=== PATIENT | female | born 1960 | race Caucasian/White ===

== ENCOUNTER 2017-11-11 15:02 | Observation (INO) | payer BC ==
[~2017-11-11] VITALS: Ht 165.1 cm; Wt 60.0 kg
[2017-11-11 15:04] VITALS: BP 152/86; PULSE 68; RESP 16; TEMP 98.2; O2SAT 98
--- NOTE | 2017-11-11 15:36 | RADRPT ---
EXAM DATE/TIME: 11/11/2017 15:26 [place] COMPARISON: No previous studies available for comparison. INDICATIONS : Chest pain radiating to the left side and shortness of breath for one week. MEDICAL HISTORY : No pertinent medical history. SURGICAL HISTORY : No pertinent surgical history. ENCOUNTER: Initial ACUITY: 1 week PAIN SCORE: 6/10 LOCATION: Left chest FINDINGS: PA and lateral views of the chest demonstrate the lungs to be symmetrically aerated without evidence of mass, infiltrate or effusion. No evidence of pneumothorax. The cardiomediastinal contours are un remarkable. Osseous structures are intact. CONCLUSION: No acute cardiopulmonary disease. Evelio Spann MD on November 11, 2017 at 15:34 Board Certified Radiologist. This report was verified electronically.
[2017-11-11 16:03] LABS: AUTOMATED NEUTROPHIL # 4.9 TH/MM3 (1.8-7.7); BASOPHIL # 0.1 TH/MM3 (0-0.2); BASOPHIL % 0.8 % (0.0-2.0); EOSINOPHIL # 0.2 TH/MM3 (0-0.4); EOSINOPHIL % 3.1 % (0.0-4.0); HEMATOCRIT 40.8 % (35.0-46.0); LYMPH % 26.3 % (9.0-44.0); MEAN CORPUSCULAR HEMOGLOBIN 30.6 PG (27.0-34.0); MEAN CORPUSCULAR HGB CONC 34.4 % (32.0-36.0); MEAN PLATELET VOLUME 7.4 FL (7.0-11.0); MONO % 6.8 % (0.0-8.0); MONOCYTE # 0.5 TH/MM3 (0-0.9); PLATELET COUNT 342 TH/MM3 (150-450); RED BLOOD COUNT 4.58 MIL/MM3 (4.00-5.30); RED CELL DISTRIBUTION WIDTH 13.5 % (11.6-17.2); WHITE BLOOD COUNT 7.7 TH/MM3 (4.0-11.0)
[2017-11-11 16:06] VITALS: O2SAT 100
--- NOTE | 2017-11-11 16:19 | PD ---
HPI Chief Complaint: Chest Pain Time Seen by Provider: 16:11 Travel History International Travel<30 days: No Contact w/Intl Traveler<30days: No Traveled to known affect area: No History of Present Illness HPI 57 year old female with no significant past medical history presents for evaluation of chest pain and dyspnea. She reports that she traveled down here from [place] 5 days ago. She has been having this discomfort since then. She describes it as a heaviness in the center of her chest with occasional palpitations. The heaviness radiates into the left arm. Nothing makes the pain better or worse. She took 650 mg of aspirin this morning. Denies any nausea, vomiting, cough, congestion, leg swelling, abdominal pain, fevers or chills. Denies any personal history of coronary artery disease. Denies any history of tobacco use, hypertension, hyperlipidemia, diabetes. Denies any history of PE or DVT. She has no other complaints at this time. [facility] Social History Alcohol Use: No Tobacco Use: No Allergies-Medications (Allergen,Severity, Reaction): Coded Allergies: latex (Verified Allergy, Unknown, 11/11/17) Review of Systems Except as stated in HPI: all other systems reviewed are Neg Physical Exam Narrative GENERAL: Well-developed well-nourished female in no acute distress resting comfortably in hospital bed. SKIN: Warm and dry. HEAD: Atraumatic. Normocephalic. EYES: Pupils equal and round. No scleral icterus. No injection or drainage. ENT: No nasal bleeding or discharge. Mucous membranes pink and moist. NECK: Trachea midline. No JVD. CARDIOVASCULAR: Regular rate and rhythm. No murmur appreciated. RESPIRATORY: No accessory muscle use. Clear to auscultation. Breath sounds equal bilaterally. GASTROINTESTINAL: Abdomen soft, non-tender, nondistended. Hepatic and splenic margins not palpable. MUSCULOSKELETAL: No obvious deformities. No clubbing. No cyanosis. No edema. NEUROLOGICAL: Awake and alert. No obvious cranial nerve deficits. Motor grossly within normal limits. Normal speech. PSYCHIATRIC: Appropriate mood and affect; insight and judgment normal. Data Data Last Documented VS Vital Signs Date Time Temp Pulse Resp B/P (MAP) Pulse Ox O2 Delivery O2 Flow Rate FiO2 11/11/17 16:06 100 Room Air 11/11/17 15:04 98.2 68 16 Orders Orders Electrocardiogram (11/11/17 15:14) Complete Blood Count With Diff (11/11/17 15:14) Basic Metabolic Panel (Bmp) (11/11/17 15:14) Ckmb (Isoenzyme) Profile (11/11/17 15:14) Troponin I (11/11/17 15:14) Iv Access Insert/Monitor (11/11/17 15:14) Ecg Monitoring (11/11/17 15:14) Oxygen Administration (11/11/17 15:14) Oximetry (11/11/17 15:14) Chest, Pa & Lat (11/11/17 15:14) Act Partial Throm Time (Ptt) (11/11/17 15:25) Prothrombin Time / Inr (Pt) (11/11/17 15:25) Nitroglycerin Sl (Nitrostat Sl) (11/11/17 16:30) D-Dimer (11/11/17 16:16) Admit Order (Ed Use Only) (11/11/17 17:11) Activity Bed Rest With Brp (11/11/17 17:11) Vital Signs (Adult) Q4H (11/11/17 17:11) Cardiac Rhythm .As Directed (11/11/17 17:11) Notify Dr: Other .PRN (11/11/17 17:11) Notify Dr. Parameters (11/11/17 17:11) Resp Oxygen Nasal Cannula (11/11/17 ) Ckmb (Isoenzyme) Profile (11/11/17 18:40) Ckmb (Isoenzyme) Profile (11/11/17 21:40) Troponin I (11/11/17 18:40) Troponin I (11/11/17 21:40) Electrocardiogram (11/11/17 18:40) Electrocardiogram (11/11/17 21:40) ^ Obtain (11/11/17 17:11) Sodium Chloride 0.9% Flush (Ns Flush) (11/11/17 17:15) Sodium Chloride 0.9% Flush (Ns Flush) (11/11/17 21:00) Diet Regular Basic (11/11/17 Dinner) Npo After Midnight W/ Po Meds (11/11/17 Dinner) Labs Laboratory Tests Test 11/11/17 15:40 White Blood Count 7.7 TH/MM3 Red Blood Count 4.58 MIL/MM3 Hemoglobin 14.0 GM/DL Hematocrit 40.8 % Mean Corpuscular Volume 89.0 FL Mean Corpuscular Hemoglobin 30.6 PG Mean Corpuscular Hemoglobin Concent 34.4 % Red Cell Distribution Width 13.5 % Platelet Count 342 TH/MM3 Mean Platelet Volume 7.4 FL Neutrophils (%) (Auto) 63.0 % Lymphocytes (%) (Auto) 26.3 % Monocytes (%) (Auto) 6.8 % Eosinophils (%) (Auto) 3.1 % Basophils (%) (Auto) 0.8 % Neutrophils # (Auto) 4.9 TH/MM3 Lymphocytes # (Auto) 2.0 TH/MM3 Monocytes # (Auto) 0.5 TH/MM3 Eosinophils # (Auto) 0.2 TH/MM3 Basophils # (Auto) 0.1 TH/MM3 CBC Comment DIFF FINAL Differential Comment Prothrombin Time 10.2 SEC Prothromb Time International Ratio 1.0 RATIO Activated Partial Thromboplast Time 26.5 SEC D-Dimer Quantitative (PE/DVT) 0.19 MG/L FEU Blood Urea Nitrogen 12 MG/DL Creatinine 0.70 MG/DL Random Glucose 76 MG/DL Calcium Level 9.2 MG/DL Sodium Level 140 MEQ/L Potassium Level 4.3 MEQ/L Chloride Level 105 MEQ/L Carbon Dioxide Level 31.9 MEQ/L Anion Gap 3 MEQ/L Estimat Glomerular Filtration Rate 87 ML/MIN Total Creatine Kinase 62 U/L Troponin I LESS THAN 0.02 NG/ML MDM Medical Decision Making Medical Screen Exam Complete: Yes Emergency Medical Condition: Yes Medical Record Reviewed: Yes Differential Diagnosis Angina, acute coronary syndrome, pulmonary embolism, arrhythmia, pericarditis, myocarditis, pneumothorax Narrative Course The patient was placed on ECG monitor and pulse oximetry. Twelve-lead EKG was obtained revealing sinus rhythm with occasional premature complexes. Lab work and chest x-ray have been ordered. One sublingual nitroglycerin has been ordered. The patient's initial lab work and imaging studies are reassuring. At this point in time the plan and agreed to admit the patient into the chest pain center for serial cardiac enzymes and rule out purposes. She is agreeable. Diagnosis Primary Impression: Chest pain Admitting Information Admitting Physician Requests: Observation Omid Roe Nov 11, 2017 16:19
[2017-11-11 16:25] LABS: BICARBONATE 31.9 MEQ/L (21.0-32.0); BLOOD UREA NITROGEN 12 MG/DL (7-18); CALCIUM 9.2 MG/DL (8.5-10.1); CHLORIDE 105 MEQ/L (98-107); GLOMERULAR FILTRATION RATE 87 ML/MIN (>89); GLUCOSE,RANDOM 76 MG/DL (74-106); SODIUM (NA) 140 MEQ/L (136-145)
[2017-11-11 16:28] LABS: PROTHROMBIN TIME - PATIENT 10.2 SEC (9.8-11.6)
[2017-11-11 16:29] LABS: TROPONIN I LESS THAN 0.02 NG/ML (0.02-0.05)
[2017-11-11] MEDS ORDERED: NITROGLYCERIN 0.4 MG SL 25 TABS/BTL SL ONE (16:30)
[2017-11-11] MEDS ORDERED: SODIUM CHLORIDE 0.9% FLUSH 10 ML FLUSH IV FLUSH PRN (17:15)
[2017-11-11 19:01] LABS: TROPONIN I LESS THAN 0.02 NG/ML (0.02-0.05)
[2017-11-11] MEDS: SODIUM CHLORIDE 0.9% FLUSH 10 ML FLUSH IV FLUSH SCH (21:00)
[2017-11-11 21:03] VITALS: BP 116/74; PULSE 74; RESP 18; TEMP 98; O2SAT 97
[2017-11-11 23:36] LABS: TROPONIN I LESS THAN 0.02 NG/ML (0.02-0.05)
[2017-11-12] VITALS: BP 154/84; PULSE 85; RESP 18; TEMP 98.4; O2SAT 94
[2017-11-12 03:52] VITALS: BP 113/95; PULSE 83; RESP 18; TEMP 98; O2SAT 96
[2017-11-12] MEDS: SODIUM CHLORIDE 0.9% FLUSH 10 ML FLUSH IV FLUSH SCH (06:23)
[2017-11-12] MEDS ORDERED: ACETAMINOPHEN 500 MG CPLT PO PRN ×2 (07:00→07:45)
[2017-11-12] MEDS ORDERED: ONDANSETRON HCL 4 MG/2 ML VIAL IV PUSH PRN (07:45)
[2017-11-12] MEDS ORDERED: NITROGLYCERIN 0.4 MG SL 25 TABS/BTL SL PRN (07:45)
[2017-11-12 08:00] VITALS: PULSE 64
[2017-11-12 08:36] VITALS: BP 128/70; PULSE 70; RESP 20; TEMP 98.2; O2SAT 96
[2017-11-12] MEDS ORDERED: ASPIRIN 325 MG TAB PO SCH (09:00)
--- NOTE | 2017-11-12 09:31 | HHI.HP ---
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 About 10 days ago she began to notice some discomfort in her chest these episodes are in the upper mid chest lasts for seconds can be an 8 out of 10 in severity and are variously described as heavy sharp aching. At times it seems to radiate to the right arm she also has noted some shortness of breath associated. There are no precipitating or relieving factors. Currently she has a severe headache but this began after her nitroglycerin. She has an entirely negative past medical history with no no prior history of heart disease hypertension hyperlipidemia diabetes etc. Review of Systems Cardiovascular: COMPLAINS OF: See HPI Past Family Social History Allergies: Coded Allergies: latex (Verified Allergy, Unknown, 11/11/17) Past Medical History Entirely negative Past Surgical History Had her tubes tied but no other surgical history Reported Medications No medications Active Ordered Medications Current Medications Medications (Trade) Dose Ordered Sig/Mani Route Start Time Stop Time Status Last Admin (NS Flush) 2 ml UNSCH PRN IV FLUSH 11/11/17 17:15 (NS Flush) 2 ml BID IV FLUSH 11/11/17 21:00 11/12/17 06:23 (Tylenol) 500 mg Q6H PRN PO 11/12/17 07:00 11/12/17 06:23 (Tylenol) 500 mg Q4H PRN PO 11/12/17 07:45 (Zofran Inj) 4 mg Q6H PRN IV PUSH 11/12/17 07:45 (Nitrostat Sl) 0.4 mg Q5M PRN SL 11/12/17 07:45 (Aspirin) 325 mg DAILY PO 11/12/17 09:00 11/12/17 08:19 Family History Mother age 52 of breast cancer Father age 73 after a CVA No siblings Social History No alcohol tobacco or illicit substances Works for chiropractor Physical Exam Vital Signs Vital Signs Date Time Temp Pulse Resp B/P (MAP) Pulse Ox O2 Delivery O2 Flow Rate FiO2 11/12/17 08:36 98.2 70 20 128/70 (89) 96 11/12/17 03:52 98.0 83 18 113/95 (101) 96 11/12/17 00:00 98.4 85 18 154/84 (107) 94 11/11/17 21:03 97 11/11/17 21:03 98.0 74 18 116/74 (88) 97 11/11/17 16:06 100 Room Air 11/11/17 16:05 100 Room Air 11/11/17 15:04 98.2 68 16 152/86 (108) 98 Physical Exam GENERAL: Well-nourished well-developed lady complaining of headache SKIN: Warm and dry. HEAD: Atraumatic. Normocephalic. EYES: Pupils equal and round. No scleral icterus. No injection or drainage. ENT: No nasal bleeding or discharge. Mucous membranes pink and moist. NECK: Trachea midline. No JVD. CARDIOVASCULAR: Regular rate and rhythm. RESPIRATORY: No accessory muscle use. Clear to auscultation. Breath sounds equal bilaterally. GASTROINTESTINAL: Abdomen soft, non-tender, nondistended. Hepatic and splenic margins not palpable. Bellybutton ornament MUSCULOSKELETAL: Extremities without clubbing, cyanosis, or edema. No obvious deformities. NEUROLOGICAL: Awake and alert. No obvious cranial nerve deficits. Motor grossly within normal limits. Five out of 5 muscle strength in the arms and legs. Normal speech. PSYCHIATRIC: Appropriate mood and affect; insight and judgment normal. Laboratory Laboratory Tests Test 11/11/17 15:40 11/11/17 18:30 11/11/17 22:40 White Blood Count 7.7 Red Blood Count 4.58 Hemoglobin 14.0 Hematocrit 40.8 Mean Corpuscular Volume 89.0 Mean Corpuscular Hemoglobin 30.6 Mean Corpuscular Hemoglobin Concent 34.4 Red Cell Distribution Width 13.5 Platelet Count 342 Mean Platelet Volume 7.4 Neutrophils (%) (Auto) 63.0 Lymphocytes (%) (Auto) 26.3 Monocytes (%) (Auto) 6.8 Eosinophils (%) (Auto) 3.1 Basophils (%) (Auto) 0.8 Neutrophils # (Auto) 4.9 Lymphocytes # (Auto) 2.0 Monocytes # (Auto) 0.5 Eosinophils # (Auto) 0.2 Basophils # (Auto) 0.1 CBC Comment DIFF FINAL Differential Comment Prothrombin Time 10.2 Prothromb Time International Ratio 1.0 Activated Partial Thromboplast Time 26.5 D-Dimer Quantitative (PE/DVT) 0.19 Blood Urea Nitrogen 12 Creatinine 0.70 Random Glucose 76 Calcium Level 9.2 Sodium Level 140 Potassium Level 4.3 Chloride Level 105 Carbon Dioxide Level 31.9 Anion Gap 3 Estimat Glomerular Filtration Rate 87 Total Creatine Kinase 62 50 48 Troponin I LESS THAN 0.02 LESS THAN 0.02 LESS THAN 0.02 Result Diagram: 11/11/17 1540 11/11/17 1540 Imaging Negative chest x-ray Course Patient has ruled out by chest pain center protocol for ACS. She continues to complain of chest pain and a severe headache. She will be given a single dose of 2 mg IV morphine and his headache improves we will obtain an exercise stress test Caprini VTE Risk Assessment Caprini VTE Risk Assessment: No/Low Risk (score <= 1) Caprini Risk Assessment Model Point Value = 1 Point Value = 2 Point Value = 3 Point Value = 5 Age 41-60 Minor surgery BMI > 25 kg/m2 Swollen legs Varicose veins or History of unexplained or recurrent spontaneous Oral contraceptives or hormone replacement Sepsis (< 1 month) Serious lung disease, including pneumonia (< 1 month) Abnormal pulmonary function Acute myocardial infarction Congestive heart failure (< 1 month) History of inflammatory bowel disease Medical patient at bed rest Age 61-74 Arthroscopic surgery Major open surgery (> 45 min) Laparoscopic surgery (> 45 min) Malignancy Confined to bed (> 72 hours) Immobilizing plaster cast Central venous access Age >= 75 History of VTE Family history of VTE Factor V Leiden Prothrombin [id number] Lupus anticoagulant Anticardiolipin antibodies Elevated serum homocysteine Heparin-induced thrombocytopenia Other congenital or acquired thrombophilia Stroke (< 1 month) Elective arthroplasty Hip, pelvis, or leg fracture Acute spinal cord injury (< 1 month) Prophylaxis Regimen Total Risk Factor Score Risk Level Prophylaxis Regimen 0-1 Low Early ambulation 2 Moderate Order ONE of the following: *Sequential Compression Device (SCD) *Heparin 5000 units SQ BID 3-4 Higher Order ONE of the following medications: *Heparin 5000 units SQ TID *Enoxaparin/Lovenox 40 mg SQ daily (WT < 150 kg, CrCl > 30 mL/min) *Enoxaparin/Lovenox 30 mg SQ daily (WT < 150 kg, CrCl > 10-29 mL/min) *Enoxaparin/Lovenox 30 mg SQ BID (WT < 150 kg, CrCl > 30 mL/min) AND/OR *Sequential Compression Device (SCD) 5 or more Highest Order ONE of the following medications: *Heparin 5000 units SQ TID (Preferred with Epidurals) *Enoxaparin/Lovenox 40 mg SQ daily (WT < 150 kg, CrCl > 30 mL/min) *Enoxaparin/Lovenox 30 mg SQ daily (WT < 150 kg, CrCl > 10-29 mL/min) *Enoxaparin/Lovenox 30 mg SQ BID (WT < 150 kg, CrCl > 30 mL/min) AND *Sequential Compression Device (SCD) Assessment and Plan Problem List: (1) Chest pain ICD Codes: R07.9 - Chest pain, unspecified Status: Acute Plan: Has ruled out for ACS and will obtain an exercise stress test. If negative will discharge for outpatient follow-up when she returns to [place] Code Status Full code Discussed Condition With Discussed with nurse practitioner and with the patient Garrison Gordon MD Nov 12, 2017 09:31
[2017-11-12] MEDS ORDERED: MORPHINE SULFATE 2 MG/ML INJ IV PUSH ONE (10:00)
--- NOTE | 2017-11-12 10:10 | HHI.DCPOC ---
Discharge Care Plan Diagnosis: (1) Atypical chest pain Goals to Promote Your Health * To prevent worsening of your condition and complications * To maintain your health at the optimal level Directions to Meet Your Goals Take your medications as prescribed Follow your dietary instruction Follow activity as directed Keep your appointments as scheduled Take your immunizations and boosters as scheduled If your symptoms worsen call your PCP, if no PCP go to Urgent Care Center or Emergency Room Smoking is Dangerous to Your Health. Avoid second hand smoke Call the 24-hour hour crisis hotline for domestic abuse at Raina Cuellar Nov 12, 2017 10:10
[2017-11-12] MEDS ORDERED: IBUPROFEN 600 MG TAB PO ONE (10:30)
--- NOTE | 2017-11-12 17:45 | EKG ---
Date Performed: 11/11/2017 Time Performed: 22:35:49 PTAGE: 57 years EKG: Sinus rhythm MINIMAL ST DEPRESSION BORDERLINE ECG NO SIG CHANGE PREVIOUS TRACING : 11/11/2017 18.38 DOCTOR: Garrison Gordon Interpretating Date/Time 11/12/2017 17:42:53
--- NOTE | 2017-11-12 17:45 | EKG ---
Date Performed: 11/11/2017 Time Performed: 18:38:30 PTAGE: 57 years EKG: Sinus rhythm POSSIBLE RIGHT VENTRICULAR CONDUCTION DELAY BORDERLINE ECG NO SIG CHANGE PREVIOUS TRACING : 11/11/2017 15.35 DOCTOR: Garrison Gordon Interpretating Date/Time 11/12/2017 17:43:43
--- NOTE | 2017-11-12 17:46 | EKG ---
Date Performed: 11/11/2017 Time Performed: 15:35:20 PTAGE: 57 years EKG: Sinus rhythm WITH OCCASIONAL ECTOPIC PREMATURE COMPLEXES BORDERLINE ECG NO PREVIOUS TRACING DOCTOR: Garrison Gordon Interpretating Date/Time 11/12/2017 17:43:56
--- NOTE | 2017-11-12 17:48 | TR ---
Date Performed: 11/12/2017 Time Performed: 09:51:29 DOCTOR: Garrison Gordon DRUG LIST: CLINICAL HISTORY: REASON FOR TEST: Chest pain REASON FOR ENDING: OBSERVATION: CONCLUSION: Ashwin protocol completed. Stopped sec to reaching target heart rate and leg fatigue. Maximum SZ=592 Target HR Achieved=84.0% Maximum UR=421/92 Total Exercise Time=3:01. No reprod chest discomfort. No ectopy. St segments non-diagnostic. Normal bp response. Poor exercise tolerance. Thor very quick and unremarkable. COMMENTS:
== END 2017-11-12 11:16 | disposition home or self-care (01) ==
LOC: NEPC 15:02 → NEDA 17:13 → NEPGCP 18:16
PROVIDERS: ADMIT Internal Medicine Interventional Cardiology; ATTEND Internal Medicine Interventional Cardiology
DX: R07.89 Other chest pain (principal); R06.02 Shortness of breath; R51 Headache; M79.602 Pain in left arm; I49.3 Ventricular premature depolarization
CPT/HCPCS: 71046; 80048; 82550; 84484; 85025; 85379; 85610; 85730; 93005; 93017; 99285; G0378